=== PATIENT | female | born 1975 | race Hispanic/Latino ===

== ENCOUNTER 2017-01-22 21:37 | Emergency (ER) | payer MEDICAID, OTHER ==
[2017-01-22] MEDS ORDERED: SODIUM CHLORIDE 0.9% 1000ML 0 ML ONE (21:48)
[2017-01-22] MEDS ORDERED: LABETALOL INJ 5 MG/ML VIAL ONE (21:51)
[2017-01-22] MEDS: LABETALOL INJ 5 MG/ML VIAL IV ONE ×2 (21:55→22:12)
--- NOTE | 2017-01-22 21:58 | ED.PDOC ---
History of Present Illness - General Chief Complaint: Chest Pain/[place] Stated Complaint: Chest pain X 2 days Time Seen by Provider: 01/22/17 21:54 Source: patient, RN notes reviewed, Vital Signs reviewed Exam Limitations: no limitations - History of Present Illness Initial Comments: Patient comes in from [facility] with c/o of L sided chest pain that is going into her upper arm. She describes the pain as a screwdriver going into her chest. She had similar pain in the past when her BP was elevated. Mother recently had her first heart attack. She also reports a lot of anxiety. Pain is 10/10 Timing/Duration: days - 2, getting worse Severity/Quality: severe, stabbing Location: shoulder - Left, other - L chest Chest Pain Radiation: shoulders - Left Activities at Onset: none Prior Chest Pain/Cardiac Workup: other - Prior chest pain due to elevated blood pressure Improving Factors: nothing Worsening Factors: nothing Nitro Today/Relief: 0.4 mg x 1, no relief Aspirin Treatment Today: 81 mg x 4, provided by ED Associated Symptoms: nausea/vomiting, shortness of breath Allergies/Adverse Reactions: Allergies NO KNOWN ALLERGY Allergy (Verified 01/22/17 21:53) Home Medications: Ambulatory Orders Lisinopril 20 mg PO DAILY 01/22/17 Lisinopril 80 mg PO DAILY #60 tab 01/23/17 Review of Systems - Review of Systems Constitutional: States: no symptoms reported Respiratory: States: short of breath Cardiology: States: chest pain. Denies: palpitations, syncope Gastrointestinal/Abdominal: States: nausea. Denies: abdominal pain, vomiting Musculoskeletal: States: no symptoms reported Neurological: States: no symptoms reported All other Systems: No Change from Baseline Family Medical History - Family History Mother Family History: Unknown Physical Exam - Physical Exam General Appearance: Anxious, Well Developed, Well Groomed, Well Hydrated, Well Nourished, Other - In obvious pain Neck: non-tender, full range of motion, supple, normal inspection Respiratory: lungs clear, normal breath sounds, no respiratory distress, no accessory muscle use, other - Palpation of L chest reproduces pain Cardiovascular/Chest: regular rate, rhythm, no edema, no gallop, no JVD, no murmur Gastrointestinal/Abdominal: normal bowel sounds, non tender, soft, no organomegaly Neurologic: no motor/sensory deficits, alert, normal mood/affect, oriented x 3 Skin Exam: normal color, warm/dry Comments: Vital Signs 01/22/17 01/22/17 21:40 22:08 Temperature 99.1 F Pulse Rate [ 80 78 monitor] Respiratory 22 18 Rate Blood Pressure 220/120 198/122 [Right Arm] O2 Sat by Pulse 100 100 Oximetry Progress - Progress Progress: 01/22/17 22:30 Patient given Labetolol 10mg IV and SLNTG X 1 - slight improvement of BP but no change in her pain. A second dose of Labetolol 10mg IV - BP improved to 176/110 and pain improving 01/22/17 23:13 BP still elevated so gave Cardizem 15mg IV 01/22/17 23:17 Patient reports pain is still 10 and she c/o headache since taking the nitroglycerine. Will give Morphine 4mg IV 01/22/17 23:46 No change in BP or BANERJEE. BP still 176/100. Will get CT scan of head. 01/23/17 00:32 01/23/17 01:06 Advised patient of normal work up. She was up to bathroom and staff reports she did not appear to be in pain but now her only c/o is BANERJEE. She just wants her BANERJEE to go away. Will give Lisinopril 20mg PO and Tylenol 1gm po. 01/23/17 02:12 Patient still with c/o of BANERJEE 12/13. On additional questioning does report history of Migraines but has not had one in several years. Also, the light is making her BANERJEE worse and when she closes her eyes she sees squiggly floaters. ? if she is just having a migraine that caused her BP to elevate and cause her chest pain. Will give a dose of Dilaudid & see if can get BANERJEE to break and hopefully this will lower her BP which is still 160/101. Patient is agreeable with plan. 01/23/17 03:38 Chest pain resolved. BANERJEE improving BP 169/96 Will d/c back to assisted Patient agreeable with plan. - Results/Orders Results/Orders: Laboratory Tests 01/22/17 01/22/17 01/22/17 21:50 21:50 21:50 WBC 9.1 RBC 4.26 Hgb 12.4 Hct 37.4 MCV 87.9 MCH 29.1 MCHC 33.1 RDW 15.1 H Plt Count 278 MPV 8.6 Absolute Neuts (auto) 6.00 Absolute Lymphs (auto) 2.30 Absolute Monos (auto) 0.60 Absolute Eos (auto) 0.10 Absolute Basos (auto) 0.00 Neutrophils % 65.9 Lymphocytes % 25.2 Monocytes % 7.1 Eosinophils % 1.5 Basophils % 0.3 D-Dimer, Quantitative < 230 Sodium 142 Potassium 3.8 Chloride 106 Carbon Dioxide 26 Anion Gap 13.8 BUN 14 Creatinine 0.66 BUN/Creatinine Ratio 21.2 H Random Glucose 106 H Serum Osmolality 284.0 Calcium 9.7 Total Bilirubin 0.4 AST 57 H ALT 101 H Alkaline Phosphatase 148 H Creatine Kinase 46 CK-MB (CK-2) 0.8 CK-MB (CK-2) % Not Reportable Troponin I < 0.02 Serum Total Protein 7.7 Albumin 4.0 Globulin 3.7 H Albumin/Globulin Ratio 1.1 - EKG/XRAY/CT EKG: Sinus, no ST T wave changes Comments: Rate 80 XRAY: chest - Normal per Radiologist CT Ordered: Yes - Head: No acute intracranial process per Radiologist Departure - Departure Clinical Impression: Hypertensive urgency, Uncontrolled hypertension Chest pain Qualifiers: Chest pain type: unspecified Qualified Code(s): R07.9 - Chest pain, unspecified Migraine Qualifiers: Migraine type: without aura Status migrainosus presence: without status migrainosus Intractability: not intractable Qualified Code(s): G43.009 - Migraine without aura, not intractable, without status migrainosus Time of Disposition: 03:39 Disposition: Half-Way Condition: Good Departure Forms: ED Discharge - Pt. Copy, Patient Portal Self Enrollment Instructions: DI for Migraine, DI for Chest Pain, High Blood Pressure Diet: resume usual diet Activity: increase activity as tolerated Referrals: ANURADHA RIVAS [Primary Care Provider] - 1-2 Weeks Prescriptions: Lisinopril 80 mg PO DAILY #60 tab Home Medications: Ambulatory Orders Lisinopril 20 mg PO DAILY 01/22/17 Lisinopril 80 mg PO DAILY #60 tab 01/23/17
[2017-01-22] MEDS ORDERED: ASPIRIN (CHEWABLE) 81 MG TAB PO ONE (21:59)
[2017-01-22] MEDS ORDERED: NITROGLYCERIN 0.4 MG 25 EA TAB SL ONE (21:59)
--- NOTE | 2017-01-22 22:32 | RAD ---
EXAM DESCRIPTION: Chest,1 View CLINICAL HISTORY: Chest pain COMPARISON: None FINDINGS: Cardiac silhouette is within normal limits. EKG leads project over the chest. There is no focal parenchymal or pleural disease. There is no acute osseous process visualized. IMPRESSION: No evidence of acute cardiopulmonary disease. Electronically signed by: Raimundo Mchugh MD 01/22/2017 10:30 PM CDT
[2017-01-22] MEDS ORDERED: MORPHINE SULFATE INJ 10 MG/ML VIAL IV ONE (23:17)
--- NOTE | 2017-01-23 00:36 | CT ---
EXAM: CT head without contrast. INDICATION: Headache. TECHNIQUE: Contiguous axial CT images of the brain. Intravenous contrast: Absent. DLP 773 mGy-cm. This exam was performed according to our departmental dose-optimization program, which includes automated exposure control, adjustment of the mA and/or kV according to patient size and/or use of iterative reconstruction technique. COMPARISON: None. FINDINGS: Subcutaneous: Unremarkable. No acute intracranial hemorrhage. No midline shift. No mass effect. Ventricles: No hydrocephalus. Mahoney-white differentiation preserved. Paranasal sinuses/mastoid air cells: Visualized portions are aerated. Bones/orbits: Visualized portions are unremarkable. IMPRESSION: 1. No CT evidence of acute intracranial hemorrhage. Electronically signed by: Pola Almaguer MD 01/23/2017 12:35 AM CDT Workstation: [id number]
[2017-01-23] MEDS ORDERED: LISINOPRIL 10 MG TAB PO ONE (01:07)
[2017-01-23] MEDS ORDERED: ACETAMINOPHEN 500 MG TAB PO ONE (01:07)
[2017-01-23] MEDS ORDERED: ONDANSETRON INJ 4 MG/2 ML VIAL IV ONE (02:14)
[2017-01-23] MEDS ORDERED: HYDROmorphone HCL INJ 2 MG/ML VIAL IV ONE (02:14)
[2017-01-23 04:05] VITALS: BP 183/110
[2017-01-23 04:07] VITALS: TEMP 99; O2SAT 99
== END 2017-01-23 04:07 ==
LOC: ER 21:37
DX: I16.0 Hypertensive urgency (principal); R07.9 Chest pain, unspecified; G43.009 Migraine without aura, not intractable, without status migrainosus
CPT/HCPCS: 36415; 70450; 71010; 80053; 82550; 82553; 84484; 85025; 85379; 93005; J1170; J2270; J2405

== ENCOUNTER → 2017-02-08 | Outpatient (CLI) | payer OTHER | END | disposition home or self-care (01) | LOC: YCFC.O 11:22 | DX: I10 Essential (primary) hypertension (principal) ==